=== PATIENT | male | born 1975 | race Hispanic/Latino ===

== ENCOUNTER 2017-04-08 21:09 | Emergency (ER) | payer MEDICAID ==
[2017-04-08 21:09] VITALS: BMI 21.5
[2017-04-08 21:14] VITALS: BP 120/72; PULSE 84; RESP 20; TEMP 98.7; O2SAT 100
[2017-04-08] MEDS ORDERED: Oxycodone/Acetaminophen 5/325 mg Tab PO STA (21:39)
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
[2017-04-08] MEDS ORDERED: Oxycodone/Acetaminophen 5/325 mg Tab ONE (22:16)
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
--- NOTE | 2017-04-09 09:33 | RAD ---
PROCEDURE: Radiographs of the Right Shoulder HISTORY: trauma COMPARISON: Right shoulder radiographs 05/10/2015 FINDINGS: BONES: Normal. No fracture. JOINTS: Normal. Glenohumeral and acromioclavicular joints preserved. No osteoarthritis. SOFT TISSUES: Prior soft tissue calcification superior to the greater tuberosity of the proximal right humerus is not identified at this time. OTHER FINDINGS: None. IMPRESSION: Normal radiographs of the right shoulder.
== END 2017-04-08 23:33 | disposition home or self-care (01) ==
LOC: H.ER 21:09
DX: S09.90XA Unspecified injury of head, initial encounter (principal); S43.101A Unspecified dislocation of right acromioclavicular joint, initial encounter; S62.91XA Unspecified fracture of right hand, initial encounter for closed fracture; W19.XXXA Unspecified fall, initial encounter; Y93.55 Activity, bike riding; F41.9 Anxiety disorder, unspecified; Z88.0 Allergy status to penicillin; I25.2 Old myocardial infarction